=== PATIENT | female | born 1955 | race Caucasian/White ===

== ENCOUNTER 2019-05-31 21:18 | Emergency (ER) | payer MEDICAID, OTHER ==
[~2019-05-31] VITALS: Ht 160 cm; Wt 58.1 kg
--- NOTE | 2019-05-31 21:18 | NUR ---
C/O "COUGHING UP BLOOD CLOTS" COUGH, PT AWAKE, ALERT, -SOB,. NADN OTED, PENDING MD RODGERS
[2019-05-31 22:24] LABS: BASOPHILS % (AUTO) 0.1 % (0.0-2.0); EOSINOPHILS % (AUTO) 0.5 % (0.0-6.0); HEMATOCRIT 39 % (33-45); LYMPHOCYTES # (AUTO) 0.9 /CMM (0.8-4.8); MEAN CORPUSCULAR HGB CONC 34 g/dl (31.0-36.0); MEAN CORPUSCULAR VOLUME 86 fL (82-100); MONOCYTES # (AUTO) 0.3 /CMM (0.1-1.30); MONOCYTES % (AUTO) 5.6 % (2.0-12.0); NEUTROPHILS # (AUTO) 4.8 /CMM (1.8-8.9); NEUTROPHILS % (AUTO) 78.8 % (43.0-81.0); PLATELET COUNT (AUTO) 178 /CMM (150-450); RED BLOOD CELL COUNT(AUTO) 4.49 MIL/uL (4.0-5.2); WHITE BLOOD COUNT (AUTO) 6.1 K/uL (4.3-11.0)
[2019-05-31 22:31] LABS: CALCIUM, SERUM 9.2 mg/dL (8.5-10.1); CREATININE 0.6 mg/dL (0.6-1.3); POTASSIUM 4.5 mmol/L (3.5-5.1)
[2019-05-31 23:50] VITALS: BP 144/64
--- NOTE | 2019-06-01 00:09 | NUR ---
Patient discharged to home in stable condition. Written and verbal after care instructions given. Patient verbalizes understanding of instruction. IV removed. Catheter intact and site benign. Pressure and 4x4 applied to site. No bleeding noted.
== END 2019-06-01 00:24 | disposition home or self-care (01) ==
LOC: ER 21:31
DX: J18.9 Pneumonia, unspecified organism (principal); I10 Essential (primary) hypertension
CPT/HCPCS: 36415; 71045-TC; 80048-TC; 85025-TC; 85730-TC